=== PATIENT | female | born 1940 | race Caucasian/White ===

== ENCOUNTER 2023-11-11 07:27 | Outpatient (RCR) | payer OTHER, SELFPAY | END 2023-11-11 23:59 | disposition home or self-care (01) | LOC: RPT 07:27 | PROVIDERS: ATTENDING PHYSICIAN Internal Medicine Geriatric Medicine | DX: R26.9 Unspecified abnormalities of gait and mobility (principal); Z91.81 History of falling; Z73.6 Limitation of activities due to disability; G31.84 Mild cognitive impairment of uncertain or unknown etiology | CPT/HCPCS: 97163; 97167 ==

== ENCOUNTER 2023-12-16 14:15 | Outpatient (RCR) | payer OTHER, SELFPAY | END 2023-12-16 23:59 | disposition home or self-care (01) | LOC: RST 14:15 | PROVIDERS: ATTENDING PHYSICIAN Internal Medicine Geriatric Medicine | DX: R26.9 Unspecified abnormalities of gait and mobility (principal); Z91.81 History of falling; Z73.6 Limitation of activities due to disability; F09 Unspecified mental disorder due to known physiological condition; R41.841 Cognitive communication deficit | CPT/HCPCS: 96125; 97110; 97112; 97129; 97130; 97530; 97535 ==

== ENCOUNTER 2024-01-11 10:10 | Outpatient (RCR) | payer OTHER, SELFPAY | END 2024-01-11 23:59 | disposition home or self-care (01) | LOC: RST 10:10 | PROVIDERS: ATTENDING PHYSICIAN Internal Medicine Geriatric Medicine | DX: R26.9 Unspecified abnormalities of gait and mobility (principal); Z91.81 History of falling; Z73.6 Limitation of activities due to disability | CPT/HCPCS: 97110; 97112; 97129; 97130; 97530 ==

== ENCOUNTER 2024-01-21 10:31 | Outpatient (RCR) | payer OTHER, SELFPAY | END 2024-01-28 14:05 | disposition home or self-care (01) | LOC: RST 10:31 | PROVIDERS: ATTENDING PHYSICIAN Internal Medicine Geriatric Medicine | DX: G31.84 Mild cognitive impairment of uncertain or unknown etiology (principal); Z91.81 History of falling; Z73.6 Limitation of activities due to disability | CPT/HCPCS: 97110; 97129; 97130; 97530; 97535 ==

== ENCOUNTER → 2024-07-18 12:43 | Outpatient (REF) | payer OTHER, SELFPAY ==
[2024-07-18 13:47] LABS: % Basophils 0.5 % (0-2); % Immature Granulocytes 0.2 % (0-0.5); % Lymphocytes 28.1 % (20.5-51.1); % Monocytes 6.4 % (1.7-9.3); % Neutrophils 62.8 % (42.2-75.2); Absolute Eosinophils 0.1 10^3/uL (0-0.7); Absolute Lymphocytes 1.1 10^3/uL (1.2-3.4); Absolute Monocytes 0.3 10^3/uL (0.1-0.6); Absolute Neutrophils 2.5 10^3/uL (1.4-6.5); Hematocrit 40.5 % (37.0-47.0); Hemoglobin 13.4 g/dL (12.0-16.0); Mean Corp Hgb Conc. 33.1 g/dL (33.0-37.0); Mean Corpuscular Hgb 32.4 pg (27.0-31.0); Mean Corpuscular Volume 98.1 fL (81.0-99.0); Mean Platelet Volume 9.3 fL (7.4-10.4); Nucleated Red Blood Cells % 0 %; Platelet Count 188 10^3/uL (130-400); Red Blood Cell Count 4.13 10^6/uL (4.20-5.40); Red Cell Dist. Width 12.6 % (11.5-14.5); White Blood Cell Count 4.1 10^3/uL (4.8-10.8)
[2024-07-18 14:11] LABS: Erythrocyte Sed Rate 8 mm/hour (0-20); Urine Albumin 1+ (Neg - Trace); Urine Bilirubin Negative (Negative); Urine Character Clear (Clear); Urine Color Yellow; Urine Glucose Negative (Negative); Urine Ketone Negative (Negative); Urine Leukocyte 3+ (Negative); Urine Nitrite Negative (Negative); Urine Occult Blood 3+ (Negative); Urine Urobilinogen Negative (Neg - 1+)
[2024-07-18 14:16] LABS: ALT (SGPT) 23 U/L (0-35); AST (SGOT) 34 U/L (14-36); Alkaline Phosphatase 57 U/L (38-126); Blood Urea Nitrogen 22 mg/dl (7-17); Calcium 9.8 mg/dl (8.4-10.2); Carbon Dioxide 29 mmol/L (22-30); Chloride 107 mmol/L (98-107); Glucose 93 mg/dl (70-99); HDL Cholesterol 88 mg/dl; LDL Cholesterol, Calculated 93 mg/dl; Potassium 4.5 mmol/L (3.5-5.1); Sodium 141 mmol/L (135-145); Total Bilirubin 0.8 mg/dl (0.2-1.3); Total Cholesterol 199 mg/dl (50-199); Total Protein 6.9 g/dl (6.3-8.2); Triglyceride 94 mg/dl (10-149); Very Low Density Lipoprotein 18 mg/dl (0-30); eGFR > 60.00
[2024-07-18 14:24] LABS: Urine Bacteria Moderate (Negative); Urine Red Blood Cell 0-2 /HPF (0-2)
[2024-07-18 14:36] LABS: Vitamin D, 25-OH*** 73.8 ng/mL (30-80)
[2024-07-18 14:50] LABS: TSH 1.64 uIU/ml (0.47-4.68)
== END ==
LOC: REG 12:43
PROVIDERS: ATTENDING PHYSICIAN Internal Medicine Geriatric Medicine
DX: I25.118 Atherosclerotic heart disease of native coronary artery with other forms of angina pectoris (principal); R26.9 Unspecified abnormalities of gait and mobility; R06.02 Shortness of breath; R41.3 Other amnesia; Z91.81 History of falling; M25.552 Pain in left hip; E03.9 Hypothyroidism, unspecified; Z13.89 Encounter for screening for other disorder; E55.9 Vitamin D deficiency, unspecified; H81.10 Benign paroxysmal vertigo, unspecified ear; Z23 Encounter for immunization
CPT/HCPCS: 36415; 80053; 80061; 81003; 81015; 82306; 84439; 84443; 85025; 85652